=== PATIENT | female | born 1940 | race Caucasian/White ===

== ENCOUNTER 2016-11-12 10:24 | Emergency (ER) | payer OTHER ==
[~2016-11-12] VITALS: Ht 157.5 cm; Wt 78.9 kg
[~2016-11-12 10:24] MED LIST: ACET1TAB40 PO; ACET500C5 PO; CLIN-73 PO; MUPI22OI2 TOP; [UNRECOGNIZED DRUG - REMARK]
[2016-11-12 10:30] VITALS: Ht 157.5 cm; Wt 78.9 kg
[2016-11-12] MEDS ORDERED: ACETAMINOPHEN 500 MG TAB PO STA (11:25)
[2016-11-12] MEDS ORDERED: SULF1TAB31 PO (11:28)
[2016-11-12] MEDS ORDERED: MUPI22OI2 TOP (11:28)
[2016-11-12] MEDS ORDERED: TRIMETHOPRIM/SULFAMETHOX (DS) TAB PO ONE (11:30)
--- NOTE | 2016-11-12 11:35 | ERD ---
ER Documentation Chief Complaint Date/Time DATE: 11/12/16 TIME: 11:32 Chief Complaint drainage from belly buttom HPI 6-year-old female presents with some foul-smelling discharge from her bellybutton for the last few days. Patient has a history of umbilical hernia surgery approximately 2 years ago. She has no measured fevers, vomiting and is having normal bowel movements. There is no redness noted. ROS All systems reviewed and are negative except as per history of present illness. Medications Home Meds Active Scripts Mupirocin* (Bactroban*) 2% -22 Gram Oint...g., 1 APPLIC TOP BID for 7 Days, EA Prov:ARIANA VELA MD 11/12/16 Sulfamethoxazole/Trimethoprim* (Bactrim Ds* Tablet) 1 Each Tablet, 1 TAB PO BID for 7 Days, #14 TAB Prov:ARIANA VELA MD 11/12/16 Acetaminophen* (Tylophen*) 500 Mg Capsule, 1 CAP PO Q6H Y for PAIN AND OR ELEVATED TEMP, #20 CAP Prov:FITZ HAY NP 08/14/15 Mupirocin* (Bactroban*) 2% -22 Gram Oint...g., 1 APPLIC TOP BID for 7 Days, EA Prov:FITZ HAY NP 08/14/15 Acetaminophen-Codeine* (Acetaminophen-Cod #3*) 300-30 Mg Tab, 1 TAB PO BID Y for PAIN, #30 TAB 0 Refills Prov:SAVANNAH CARPENTER PA-C 02/16/15 Clindamycin Hcl* (Clindamycin Hcl*) 300 Mg Capsule, 300 MG PO TID for 10 Days, CAP Prov:DEE LANGE PA-C 02/11/15 Reported Medications [Pt Does Not Recall M] No Conflict Check 10/03/10 Allergies Allergies: Coded Allergies: Penicillins (Verified Allergy, Unknown, 08/14/15) tetracycline (Verified Allergy, Unknown, 08/14/15) PMhx/Soc History of Surgery: No (TUBES TIED, R HAND SURGERY, HERNIA) Anesthesia Reaction: No Hx Neurological Disorder: No Hx Respiratory Disorders: No Hx Psychiatric Problems: No Hx Alcohol Use: No Hx Substance Use: No Hx Tobacco Use: No Physical Exam Vitals Vital Signs Date Time Temp Pulse Resp B/P Pulse Ox O2 Delivery O2 Flow Rate FiO2 11/12/16 10:30 98.2 74 18 166/77 99 Physical Exam Const: []Alert, [id number]. Head: Atraumatic Eyes: Normal Conjunctiva ENT: Normal External Ears, Nose and Mouth. Neck: Full range of motion..~ No meningismus. Resp: Clear to auscultation bilaterally Cardio: Regular rate and rhythm, no murmurs Abd: Soft, non tender, non distended. Normal bowel sounds. There is a healed abdominal hernia surgery. There is slight amount of clear foul-smelling discharge from near the scar. There is no erythema or fluctuance or expressible discharge. There is no appreciable deep abdominal tenderness. Skin: No petechiae or rashes Back: No midline or flank tenderness Ext: No cyanosis, or edema Neur: Awake and alert Psych: Normal Mood and Affect Results 24 hrs Current Medications Medications (Trade) Dose Ordered Sig/Uli Route PRN Reason Start Time Stop Time Status Last Admin Dose Admin Trimethoprim/ Sulfamethoxazole (Bactrim (Ds)) 1 tab ONCE ONCE PO 11/12/16 11:30 11/12/16 11:31 DC 11/12/16 11:29 Acetaminophen (Tylenol Tab) 500 mg ONCE STAT PO 11/12/16 11:25 11/12/16 11:26 DC 11/12/16 11:29 Procedures/MDM Patient presents with signs of a superficial skin infection near the scar of her umbilicus from previous surgery. There is no evidence of significant cellulitis and signs and symptoms do not suggest deep abdominal infection or abscess to be drained. there is no symptoms to suggest sepsis, obstruction, incarcerated or strangulated recurrent hernia. She will treated with Bactrim and further observation at home. She should recheck in 2 days for recheck otherwise return sooner for fevers, redness, vomiting, difficulty with balance, new worsening symptoms, changes in bowel movements or with primary doctor this week. Departure Diagnosis: Primary Impression: Skin infection Condition: Stable Patient Instructions: Folliculitis Additional Instructions: CHEQUE EN 2 ZAMBRANO PARA CHEQUE OTRO VEZ, MAS PRONTO PARA FIEBRE, MAS MOYER , NUEVA SIMPTOMAS. ARIANA VELA MD Nov 12, 2016 11:35
== END 2016-11-12 11:49 | disposition home or self-care (01) ==
LOC: FTE 10:24
DX: K91.89 Other postprocedural complications and disorders of digestive system (principal); L08.9 Local infection of the skin and subcutaneous tissue, unspecified
CPT/HCPCS: 99284

== ENCOUNTER 2016-12-28 09:32 | Emergency (ER) | payer OTHER ==
[~2016-12-28] VITALS: Ht 152.4 cm; Wt 63.5 kg
[~2016-12-28 09:32] MED LIST changes: +SULF1TAB31 PO
[2016-12-28 09:40] VITALS: Ht 152.4 cm; Wt 63.5 kg
[2016-12-28] MEDS ORDERED: TRIA15CR55 TOP (11:44)
[2016-12-28] MEDS ORDERED: SULF1TAB31 PO (11:44)
--- NOTE | 2016-12-28 12:00 | ERD ---
ER Documentation Chief Complaint Chief Complaint pt bib self with c/o rash to left ankle and foot pain x 3 days HPI This is a 76-year-old female with a history of type 2 diabetes who presents the emergency department, complaining of a burning and itchy rash to the left lower extremity 3 days. Patient denies any injury, trauma, or fall. She states that she noticed a red lesion to the lateral ankle region which she rates at a 5 out of 10 itchiness with no exacerbating or alleviating factors. She has not attempted to treat her symptoms thus far. She denies fever, chills, joint pain , difficulty walking, recent immobilization, recent surgery, cancer, chest pain or shortness of breath. ROS All systems reviewed and are negative except as per history of present illness. Medications Home Meds Active Scripts Sulfamethoxazole/Trimethoprim* (Bactrim Ds* Tablet) 1 Each Tablet, 1 TAB PO BID , #14 TAB Prov:JAISON KOHLER PA-C 12/28/16 Triamcinolone Acetonide (Triamcinolone Acetonide) 0.1% - 15 Gm Cream.gm., 1 APPLIC TOP BID, #1 TUB Prov:JAISON KOHLER PA-C 12/28/16 Mupirocin* (Bactroban*) 2% -22 Gram Oint...g., 1 APPLIC TOP BID for 7 Days, EA Prov:ARIANA VELA MD 11/12/16 Sulfamethoxazole/Trimethoprim* (Bactrim Ds* Tablet) 1 Each Tablet, 1 TAB PO BID for 7 Days, #14 TAB Prov:ARIANA VELA MD 11/12/16 Acetaminophen* (Tylophen*) 500 Mg Capsule, 1 CAP PO Q6H Y for PAIN AND OR ELEVATED TEMP, #20 CAP Prov:FITZ HAY NP 08/14/15 Mupirocin* (Bactroban*) 2% -22 Gram Oint...g., 1 APPLIC TOP BID for 7 Days, EA Prov:FITZ HAY NP 08/14/15 Acetaminophen-Codeine* (Acetaminophen-Cod #3*) 300-30 Mg Tab, 1 TAB PO BID Y for PAIN, #30 TAB 0 Refills Prov:SAVANNAH CARPENTER PA-C 02/16/15 Clindamycin Hcl* (Clindamycin Hcl*) 300 Mg Capsule, 300 MG PO TID for 10 Days, CAP Prov:DEE LANGE PA-C 02/11/15 Reported Medications [Pt Does Not Recall M] No Conflict Check 10/03/10 Allergies Allergies: Coded Allergies: Penicillins (Verified Allergy, Unknown, 08/14/15) tetracycline (Verified Allergy, Unknown, 08/14/15) PMhx/Soc History of Surgery: No (TUBES TIED, R HAND SURGERY, HERNIA) Anesthesia Reaction: No Hx Neurological Disorder: No Hx Respiratory Disorders: No Hx Psychiatric Problems: No Hx Alcohol Use: No Hx Substance Use: No Hx Tobacco Use: No Physical Exam Vitals Vital Signs Date Time Temp Pulse Resp B/P Pulse Ox O2 Delivery O2 Flow Rate FiO2 12/28/16 09:40 98.3 81 18 166/70 99 Physical Exam Const: Well-developed, well-nourished, in no acute distress Head: Atraumatic Eyes: Normal Conjunctiva ENT: Normal External Ears, Nose and Mouth. Neck: Full range of motion..~ No meningismus. Resp: Clear to auscultation bilaterally Cardio: Regular rate and rhythm, no murmurs Abd: Soft, non tender, non distended. Normal bowel sounds Skin: 2 cm area of well-circumscribed erythema with overlying scaly appearance. No swelling. No induration. Mild tenderness to palpation. No swelling of the joint or leg. Back: No midline or flank tenderness Ext: No cyanosis, or edema. Full range of motion at the left ankle joint. Full weightbearing and normal gait. Neur: Awake and alert Psych: Normal Mood and Affect Procedures/MDM This is a 76-year-old female with a history of type 2 diabetes who presents to the emergency department for complaints of an itchy lesion to the left lower extremity. Upon arrival, patient well-appearing, nontoxic and in no acute distress. Vital signs reviewed and within normal limits. Patient denies fever , chills, joint pain, or difficulty walking. Physical exam with evidence of an eczematous type lesion to the left lateral ankle. Based on patient's history and physical examination, presentation consistent with likely eczematous rash. At this time low suspicion for acute abscess, severe cellulitis, septic joint, DVT, PE, severe systemic illness or sepsis. Because the patient presents with a history of type 2 diabetes I will also be recommending a short course of antibiotics as well as topical steroid ointment. Based on patient's history of present illness and physical examination the decision was made to discharge. The patient was re-evaluated after ED treatment and stabilizing measures, and symptoms have improved. There is no evidence of life threatening injuries or illnesses at this time. On re-examination, patient resting in no distress, stable vital signs, reports feeling better and safe for discharge with outpatient follow up with PMD in 1-2 days. Patient given return precautions. Departure Diagnosis: Primary Impression: Rash Condition: Good Patient Instructions: Atopic Dermatitis (Eczema) Additional Instructions: Call your primary care doctor TOMORROW for an appointment during the next 1-2 days.See the doctor sooner or return here if your condition worsens before your appointment time. JAISON KOHLER PA-C Dec 28, 2016 12:00
[2016-12-29] MEDS ORDERED: BEN25 PO (13:09)
== END 2016-12-28 12:23 | disposition home or self-care (01) ==
LOC: FTE 09:32
DX: R21 Rash and other nonspecific skin eruption (principal)
CPT/HCPCS: 99284

== ENCOUNTER 2016-12-29 10:55 | Emergency (ER) | payer OTHER ==
[~2016-12-29] VITALS: Wt 59.0 kg
[~2016-12-29 10:55] MED LIST changes: +TRIA15CR55 TOP
[2016-12-29] MEDS ORDERED: DIPHENHYDRAMINE 25 MG CAP PO ONE (12:30)
[2016-12-29] MEDS ORDERED: DEXAMETHASONE 10 MG/ML 1 ML INJ PO ONE (12:30)
[2016-12-29] MEDS ORDERED: BEN25 PO (13:09)
--- NOTE | 2016-12-29 13:17 | ERD ---
ER Documentation Chief Complaint Chief Complaint POSSIBLE ALLERGIC REACTION TO BACTRIN, HAS RASH HPI This is a 76-year-old female that presents to the ER with an itchy rash that started yesterday after she took Bactrim. Patient was seen here and given hydrocortisone and Bactrim for eczema. Denies any lip swelling, tongue swelling , shortness of breath, chest pain. Rash is very itchy. It is located on her chest and arms. Denies any fevers or chills. She states that the cream she was given really helped her rash is no longer better itchy. ROS 12 point review of systems was done, all negative except per HPI. Medications Home Meds Active Scripts Diphenhydramine Hcl* (Benadryl*) 25 Mg Cap, 25 MG PO Q6, #30 CAP Prov:ADAN REDMAN 12/29/16 Sulfamethoxazole/Trimethoprim* (Bactrim Ds* Tablet) 1 Each Tablet, 1 TAB PO BID , #14 TAB Prov:JAISON KOHLER PA-C 12/28/16 Triamcinolone Acetonide (Triamcinolone Acetonide) 0.1% - 15 Gm Cream.gm., 1 APPLIC TOP BID, #1 TUB Prov:JAISON KOHLER PA-C 12/28/16 Mupirocin* (Bactroban*) 2% -22 Gram Oint...g., 1 APPLIC TOP BID for 7 Days, EA Prov:RAIANA VELA MD 11/12/16 Sulfamethoxazole/Trimethoprim* (Bactrim Ds* Tablet) 1 Each Tablet, 1 TAB PO BID for 7 Days, #14 TAB Prov:ARIANA VELA MD 11/12/16 Acetaminophen* (Tylophen*) 500 Mg Capsule, 1 CAP PO Q6H Y for PAIN AND OR ELEVATED TEMP, #20 CAP Prov:FITZ HAY NP 08/14/15 Mupirocin* (Bactroban*) 2% -22 Gram Oint...g., 1 APPLIC TOP BID for 7 Days, EA Prov:FITZ HAY NP 08/14/15 Acetaminophen-Codeine* (Acetaminophen-Cod #3*) 300-30 Mg Tab, 1 TAB PO BID Y for PAIN, #30 TAB 0 Refills Prov:SAVANNAH CARPENTER PA-C 02/16/15 Clindamycin Hcl* (Clindamycin Hcl*) 300 Mg Capsule, 300 MG PO TID for 10 Days, CAP Prov:DEE LANGE JOE 02/11/15 Reported Medications [Pt Does Not Recall M] No Conflict Check 10/03/10 Allergies Allergies: Coded Allergies: Penicillins (Verified Allergy, Unknown, 08/14/15) tetracycline (Verified Allergy, Unknown, 08/14/15) PMhx/Soc History of Surgery: No (TUBES TIED, R HAND SURGERY, HERNIA) Anesthesia Reaction: No Hx Neurological Disorder: No Hx Respiratory Disorders: No Hx Psychiatric Problems: No Hx Alcohol Use: No Hx Substance Use: No Hx Tobacco Use: No Physical Exam Vitals Vital Signs Date Time Temp Pulse Resp B/P Pulse Ox O2 Delivery O2 Flow Rate FiO2 12/29/16 10:59 98.1 82 18 178/89 99 Physical Exam GENERAL: The patient is well developed and appropriate for usual state of health , in no apparent distress. HEENT: Atraumatic. No lip swelling, tongue swelling, eyes swelling. CHEST: Clear to auscultation bilaterally. There are no rales, wheezes or rhonchi. HEART: Regular rate and rhythm. No murmurs, clicks, rubs or gallops. NEURO: Alert and oriented. SKIN: Papular rash to the chest and arms. Negative Nikolsky sign. Results 24 hrs Current Medications Medications (Trade) Dose Ordered Sig/Uli Route PRN Reason Start Time Stop Time Status Last Admin Dose Admin Diphenhydramine HCl (Benadryl) 25 mg ONCE ONCE PO 12/29/16 12:30 12/29/16 12:31 DC 12/29/16 12:25 Dexamethasone (Decadron) 10 mg ONCE ONCE PO 12/29/16 12:30 12/29/16 12:31 DC 12/29/16 12:25 Procedures/MDM Differential Diagnosis: dermatitis, allergic urticaria, viral exanthem, insect bite, fungal infectio ,viral exanthem, hand foot mouth disease, , impetigo, cellulitis, abscess, julisa neptali syndrome, meningocemia, necrotizing fasciitis, myositis. Clinical suspcicion for necrotizing fasciitis or myositis is low. There are no skip leasions or pain away from the site of the rash. Clinical suspicion for julisa neptali syndrome is low. Patient is given Decadron and Benadryl here in the ER, her rash was improved. Patient will be sent home with Benadryl. I did not give patient additional steroids, she does have diabetes, and I do not want her sugar gets too high. Patient is afebrile, she does not have any lip, tongue, eyes swelling. Patient was told to discontinue Bactrim, as the area does not appear infected, and appears completely better with only steroid cream. Cellulitis or deep space infection. Patient is to follow-up with her primary care doctor within 1-2 days or return to ER sooner if symptoms worsen. My medical decision making shared with the patient she understands and agrees with plan. Departure Diagnosis: Primary Impression: Allergic reaction Condition: Stable Patient Instructions: Allergic Reaction, Drug Referrals: CANDI MATA (PCP) Additional Instructions: Call your primary care doctor TOMORROW for an appointment during the next 1-2 days.See the doctor sooner or return here if your condition worsens before your appointment time. ADAN REDMAN Dec 29, 2016 13:17
== END 2016-12-29 13:31 | disposition home or self-care (01) ==
LOC: FTE 10:55
DX: R21 Rash and other nonspecific skin eruption (principal)
CPT/HCPCS: 99283; J1100

== ENCOUNTER 2017-04-11 15:12 | Emergency (ER) | END 2017-04-11 21:52 | disposition home or self-care (01) ==

== ENCOUNTER 2017-10-04 13:07 | Emergency (ER) | END 2017-10-04 16:38 | disposition home or self-care (01) ==

== ENCOUNTER 2018-08-27 09:09 | Emergency (ER) | payer OTHER ==
[~2018-08-27] VITALS: Ht 160 cm; Wt 60.3 kg
[~2018-08-27 09:09] MED LIST changes: +ALBU8.5H8 INH; +AZIT250T PO; +BEN25 PO; -CLIN-73 PO; +CLIN300C10 PO; +CLOT30CR24 TOP
[2018-08-27 09:14] VITALS: Ht 160 cm; Wt 60.3 kg
--- NOTE | 2018-08-27 11:26 | ERD ---
ER Documentation Chief Complaint Chief Complaint C/O AP, N/V, H/A AND HIGH BP TODAY. HPI This is a 78-year-old woman with multiple complaints including diffuse abdominal cramping, headache, nausea, dizziness, hypertension today. She states she has had these symptoms for the last 2 days, she does have a history of recurrent abdominal pain and she states it feels similar she has had no vomiting or diarrhea, no blood per rectum or melena, no chest pain or slurred speech. Patient denies dysuria. ROS All systems reviewed and are negative except as per history of present illness. Medications Home Meds Active Scripts Mag Hydrox/Al Hydrox/Simeth (Maalox Advanced Suspension) 355 Ml Oral.susp, 2 TSP PO TID PRN for PAIN, #16 OZ Prov:FREYA HDEZ MD 08/27/18 Ondansetron Hcl* (Zofran*) 4 Mg Tablet, 4 MG PO Q8H PRN for NAUSEA AND/OR VOMITING, #30 TAB Prov:FREYA HDEZ MD 08/27/18 Ibuprofen* (Motrin*) 600 Mg Tab, 600 MG PO Q8 PRN for PAIN AND/OR INFLAMMATION, #30 TAB Prov:FREYA HDEZ MD 08/27/18 Reported Medications Atorvastatin* (Atorvastatin*) 40 Mg Tablet, 40 MG PO QHS, #30 TAB 08/27/18 Gabapentin* (Gabapentin*) 100 Mg Capsule, 100 MG PO QHS, #90 CAP 08/27/18 Amlodipine Besylate* (Norvasc*) 5 Mg Tablet, 5 MG PO DAILY, TAB 08/27/18 Sertraline Hcl* (Sertraline Hcl*) 25 Mg Tablet, 25 MG PO DAILY, #30 TAB 08/27/18 Metoprolol Succinate* (Toprol XL*) 50 Mg Tab.er.24h, 50 MG PO DAILY, #30 TAB 08/27/18 Losartan-Hydrochlorothiazide (Losartan-HCTZ) 100-12.5 Mg Tab, 1 TAB PO DAILY, TAB 08/27/18 Metformin Hcl* (Metformin Hcl*) 1,000 Mg Tablet, 1000 MG PO WITH BREAKFAST DINNE, #60 TAB 08/27/18 Glimepiride* (Glimepiride*) 2 Mg Tablet, 2 MG PO WITH BREAKFAST, TAB 08/27/18 Discontinued Reported Medications [Pt Does Not Recall M] No Conflict Check 10/03/10 Discontinued Scripts Acetaminophen* (Tylophen*) 500 Mg Capsule, 1 CAP PO Q6H PRN for PAIN AND OR ELEVATED TEMP, #20 CAP Prov:TREVER SHELTON F 04/11/17 Clotrimazole* (Clotrimazole* AF) 1% - 30 Gm Cream.gm., 1 APPLIC TOP BID for 7 Days, TUB Prov:TREVER SHELTON F 04/11/17 Albuterol Sulfate* (Proair HFA*) 8.5 Gm Hfa.aer.ad, 2 PUFF INH Q4, #1 INHALER Prov:TREVER SHELTON F 04/11/17 Azithromycin* (Zithromax*) 250 Mg Tablet, 250 MG PO .GIULIANA DIRECTED, #6 TAB TAKE 500 MG (2 TABS) THE FIRST DAY THEN 250 MG (1 TAB) DAYS 2-5 Prov:TREVER SHELTON F 04/11/17 Diphenhydramine Hcl* (Benadryl*) 25 Mg Cap, 25 MG PO Q6, #30 CAP Prov:ADAN REDMAN 12/29/16 Sulfamethoxazole/Trimethoprim* (Bactrim Ds* Tablet) 1 Each Tablet, 1 TAB PO BID, #14 TAB Prov:JAISON KOHLER PA-C 12/28/16 Triamcinolone Acetonide (Triamcinolone Acetonide) 0.1% - 15 Gm Cream.gm., 1 APPLIC TOP BID, #1 TUB Prov:JAISON KOHLER PA-C 12/28/16 Mupirocin* (Bactroban*) 2% -22 Gram Oint...g., 1 APPLIC TOP BID for 7 Days, EA Prov:ARIANA VELA MD 11/12/16 Sulfamethoxazole/Trimethoprim* (Bactrim Ds* Tablet) 1 Each Tablet, 1 TAB PO BID for 7 Days, #14 TAB Prov:ARIANA VELA MD 11/12/16 Acetaminophen* (Tylophen*) 500 Mg Capsule, 1 CAP PO Q6H PRN for PAIN AND OR ELEVATED TEMP, #20 CAP Prov:FITZ HAY NP 08/14/15 Mupirocin* (Bactroban*) 2% -22 Gram Oint...g., 1 APPLIC TOP BID for 7 Days, EA Prov:SATNAM,FITZ Ed ANDERSON 08/14/15 Acetaminophen-Codeine* (Acetaminophen-Cod #3*) 300-30 Mg Tab, 1 TAB PO BID PRN for PAIN, #30 TAB 0 Refills Prov:SAVANNAH CARPENTER PA-C 02/16/15 Clindamycin Hcl* (Clindamycin Hcl*) 300 Mg Capsule, 300 MG PO TID for 10 Days, CAP Prov:DEE LANGE PA-C 02/11/15 Allergies Allergies: Coded Allergies: Penicillins (Verified Allergy, Unknown, 08/27/18) meloxicam (Unverified Allergy, Unknown, 08/27/18) tetracycline (Verified Allergy, Unknown, 08/27/18) PMhx/Soc Hypertension, hyperlipidemia, diabetes mellitus, arthritis History of Surgery: No (TUBES TIED, R HAND SURGERY, HERNIA) Anesthesia Reaction: No Hx Neurological Disorder: No Hx Respiratory Disorders: No Hx Cardiac Disorders: Yes (HTN, hyperlipidemia, diabetes) Hx Psychiatric Problems: No Hx Miscellaneous Medical Probl: No Hx Alcohol Use: No Hx Substance Use: No Hx Tobacco Use: No Smoking Status: Never smoker FmHx Family History: No diabetes Physical Exam Vitals Vital Signs Date Temp Pulse Resp B/P (MAP) Pulse Ox O2 O2 Flow FiO2 Time Delivery Rate 08/27/18 98.0 75 20 147/62 100 Room Air 13:12 (90) 08/27/18 98.7 88 18 162/81 97 Room Air 12:19 (108) 08/27/18 97.7 80 18 208/84 99 09:14 (125) Physical Exam GENERAL: Well-developed, well-nourished, well-hydrated, in no apparent distress, looks nontoxic in appearance HEENT: Moist mucous membranes, pink conjunctiva, no cervical spine tenderness or step-off deformities, no goiter, no jaundice or icterus, extraocular movements intact without pain. No submandibular induration, and no pharyngeal erythema NEURO: Alert and oriented 3, cranial nerves II through XII intact bilaterally, pupils equal round reactive to light, no focal deficits or facial asymmetry, sensation intact distally Strength 5/5 in upper and lower extremities bilatera lly CARDIAC: Regular rate and rhythm, no murmurs rubs or gallops LUNGS: Clear bilaterally no wheezing crackles or stridor ABDOMEN: Soft nontender, no guarding, no rigidity, no rebound, no psoas sign no obturator sign. Normoactive bowel sounds SKIN: Warm and dry to touch, no abrasions, contusions, or hematomas, no lacerations, no ecchymosis, no target lesions, and without ulcers EXTREMITIES: No clubbing cyanosis or edema, calves are bilaterally symmetrical, no Homans sign, no popliteal cord sign. Distal pulses equal and bilateral PSYCH: Normal affect without agitation or irritability Result Diagram: 08/27/18 1155 08/27/18 1155 Results 24 hrs Laboratory Tests Test 08/27/18 11:54 08/27/18 11:55 Urine Color STRAW Urine Clarity CLEAR Urine pH 7.0 Urine Specific [place] 1.009 Urine Ketones NEGATIVE mg/dL Urine Nitrite NEGATIVE mg/dL Urine Bilirubin NEGATIVE mg/dL Urine Urobilinogen NEGATIVE mg/dL Urine Leukocyte Esterase NEGATIVE Nikunj/ul Urine Microscopic RBC 2 /HPF Urine Microscopic WBC 0 /HPF Urine Hemoglobin NEGATIVE mg/dL Urine Glucose NEGATIVE mg/dL Urine Total Protein 1+ mg/dl White Blood Count 9.5 10^3/ul Red Blood Count 4.13 10^6/ul Hemoglobin 11.2 g/dl Hematocrit 35.2 % Mean Corpuscular Volume 85.2 fl Mean Corpuscular Hemoglobin 27.1 pg Mean Corpuscular Hemoglobin Concent 31.8 g/dl Red Cell Distribution Width 14.3 % Platelet Count 540 10^3/UL Mean Platelet Volume 9.0 fl Immature Granulocytes % 0.500 % Neutrophils % 80.9 % Lymphocytes % 14.6 % Monocytes % 3.1 % Eosinophils % 0.1 % Basophils % 0.8 % Nucleated Red Blood Cells % 0.0 /100WBC Immature Granulocytes # 0.050 10^3/ul Neutrophils # 7.7 10^3/ul Lymphocytes # 1.4 10^3/ul Monocytes # 0.3 10^3/ul Eosinophils # 0.0 10^3/ul Basophils # 0.1 10^3/ul Nucleated Red Blood Cells # 0.0 10^3/ul Sodium Level 139 mmol/L Potassium Level 4.1 mmol/L Chloride Level 97 mmol/L Carbon Dioxide Level 27 mmol/L Anion Gap 15 Blood Urea Nitrogen 12 mg/dl Creatinine 0.64 mg/dl Est Glomerular Filtrat Rate mL/min mL/min Glucose Level 182 mg/dl Calcium Level 9.9 mg/dl Total Bilirubin 0.3 mg/dl Direct Bilirubin 0.00 mg/dl Indirect Bilirubin 0.3 mg/dl Aspartate Amino Transf (AST/SGOT) 24 IU/L Alanine Aminotransferase (ALT/SGPT) 19 IU/L Alkaline Phosphatase 66 IU/L Total Protein 8.6 g/dl Albumin 4.6 g/dl Globulin 4.00 g/dl Albumin/Globulin Ratio 1.15 Lipase 126 U/L Current Medications Medications Dose Sig/Uli Start Time Status Last (Trade) Ordered Route PRN Stop Time Admin Dose Reason Admin Sodium 1,000 ml @ Q1H STAT 08/27/18 DC 08/27/18 Chloride 1,000 mls/hr IV 11:32 12:08 08/27/18 12:31 Ondansetron 4 mg ONCE STAT 08/27/18 DC 08/27/18 HCl (Zofran IV 11:32 12:07 Inj) 08/27/18 11:33 Ketorolac 15 mg ONCE STAT 08/27/18 DC 08/27/18 Tromethamine IV 11:32 12:07 (Toradol) 08/27/18 11:33 Procedures/MDM IV line was established patient was placed on playground monitor rhythm strip revealed a sinus rhythm at about 80 bpm with upright P and T waves. Patient was afebrile I administered 500 cc normal saline IV, Toradol 15 mg IV, Zofran 4 mg IV. CBC and electrolytes are normal, liver function tests were normal, urinalysis negative for infection. I did tell the patient's return in 8 hours for repeat abdominal examination and reevaluation. Differential diagnoses considered, included but not limited to acute coronary syndrome, pulmonary embolism, aortic dissection, abdominal aortic aneurysm, sepsis, stroke, meningitis, encephalitis, pneumonia, appendicitis, cholecystitis, bowel obstruction, pyelonephritis, nephrolithiasis, cystitis, as well as metabolic, hematologic, and electrolyte abnormalities. As well as abscess, cellulitis, fractures, and dislocations. Patient feels much better at this time, and vital signs are normal, symptoms have improved. I did give strict instructions to return to the ED if symptoms continue or worsen, patient will otherwise follow-up with primary care physician. Patient understood instructions and agreed to plan. Disclaimer: Inadvertent spelling and grammatical errors are likely due to EHR/dictation software use and do not reflect on the overall quality of patient care. Also, please note that the electronic time recorded on this note does not necessarily reflect the actual time of the patient encounter. Departure Diagnosis: Primary Impression: Headache Headache type: unspecified Headache chronicity pattern: acute headache Intractability: not intractable Qualified Codes: R51 - Headache Additional Impression: Abdominal pain Abdominal location: generalized Qualified Codes: R10.84 - Generalized abdominal pain Condition: Good FREYA HDEZ MD Aug 27, 2018 11:26
[2018-08-27] MEDS ORDERED: SOD CHLORIDE 0.9% 1,000 ML IV STA (11:32)
[2018-08-27] MEDS ORDERED: KETOROLAC 15 MG INJ IV STA (11:32)
[2018-08-27] MEDS ORDERED: ONDANSETRON 4 MG INJ IV STA (11:32)
[2018-08-27] MEDS ORDERED: GLIM2TAB PO (11:45)
[2018-08-27] MEDS ORDERED: METF100010 PO (11:46)
[2018-08-27] MEDS ORDERED: LOSA1TAB28 PO (11:46)
[2018-08-27] MEDS ORDERED: METO-319 PO (11:48)
[2018-08-27] MEDS ORDERED: SERT25TA83 PO (11:48)
[2018-08-27] MEDS ORDERED: AMLO5TAB4 PO (11:49)
[2018-08-27] MEDS ORDERED: GABA100C14 PO (11:49)
[2018-08-27] MEDS ORDERED: ATOR40TA68 PO (11:49)
[2018-08-27] MEDS ORDERED: MAG355OR14 PO (12:43)
[2018-08-27] MEDS ORDERED: ONDA4TAB8 PO (12:43)
[2018-08-27] MEDS ORDERED: IBUP-1542 PO (12:43)
[2018-08-27 13:12] VITALS: BP 147/62; PULSE 75; RESP 20
== END 2018-08-27 13:14 | disposition home or self-care (01) ==
LOC: E/R 09:09
DX: R51 Headache (principal); I10 Essential (primary) hypertension; E11.9 Type 2 diabetes mellitus without complications; R11.10 Vomiting, unspecified; Z79.84 Long term (current) use of oral hypoglycemic drugs
CPT/HCPCS: 36415; 80053; 81001; 83690; 85025; 96374; 96375; 99284; J1885; J2405; J7030

== ENCOUNTER 2018-10-16 14:17 | Emergency (ER) | payer OTHER ==
[~2018-10-16] VITALS: Ht 152.4 cm; Wt 59.6 kg
[~2018-10-16 14:17] MED LIST changes: -ACET1TAB40 PO; -ACET500C5 PO; -ALBU8.5H8 INH; +AMLO5TAB4 PO; +ATOR40TA68 PO; -AZIT250T PO; -BEN25 PO; -CLIN300C10 PO; -CLOT30CR24 TOP; +GABA100C14 PO; +GLIM2TAB PO; +IBUP-1542 PO; +LOSA1TAB28 PO; +MAG355OR14 PO; +METF100010 PO; +METH500T PO; +METO-319 PO; -MUPI22OI2 TOP; +ONDA4TAB8 PO; +SERT25TA83 PO; -SULF1TAB31 PO; -TRIA15CR55 TOP; -[UNRECOGNIZED DRUG - REMARK]
[2018-10-16 14:24] VITALS: Ht 152.4 cm; Wt 59.6 kg
--- NOTE | 2018-10-16 14:54 | ERD ---
ER Documentation Chief Complaint Chief Complaint right leg pain x 3 days. fell back in february; painful to walk HPI Patient is a 78 years old female with PMHx of DM, HTN presenting to the ED for right leg pain since Friday. Patient reports difficulty walking and admits to falling down and injuring her right leg in February. Patient reports pain is located on right calf region with right plantar foot. Patient admits to taking OTC Tylenol without resolution. Patient denies any joint pain. patient reports leg pain with movement while sleeping. Patient admits to penicillin allergy. ROS All systems reviewed and are negative except as per history of present illness. Medications Home Meds Active Scripts Methocarbamol* (Robaxin*) 500 Mg Tab, 500 MG PO Q8 for 7 Days, #21 TAB Prov:AMANDA ORTIZ PA-C 10/16/18 Mag Hydrox/Al Hydrox/Simeth (Maalox Advanced Suspension) 355 Ml Oral.susp, 2 TSP PO TID PRN for PAIN, #16 OZ Prov:FREYA HDEZ MD 08/27/18 Ondansetron Hcl* (Zofran*) 4 Mg Tablet, 4 MG PO Q8H PRN for NAUSEA AND/OR VOMITING, #30 TAB Prov:FREYA HDEZ MD 08/27/18 Ibuprofen* (Motrin*) 600 Mg Tab, 600 MG PO Q8 PRN for PAIN AND/OR INFLAMMATION, #30 TAB Prov:FREYA HDEZ MD 08/27/18 Reported Medications Atorvastatin* (Atorvastatin*) 40 Mg Tablet, 40 MG PO QHS, #30 TAB 08/27/18 Gabapentin* (Gabapentin*) 100 Mg Capsule, 100 MG PO QHS, #90 CAP 08/27/18 Amlodipine Besylate* (Norvasc*) 5 Mg Tablet, 5 MG PO DAILY, TAB 08/27/18 Sertraline Hcl* (Sertraline Hcl*) 25 Mg Tablet, 25 MG PO DAILY, #30 TAB 08/27/18 Metoprolol Succinate* (Toprol XL*) 50 Mg Tab.er.24h, 50 MG PO DAILY, #30 TAB 08/27/18 Losartan-Hydrochlorothiazide (Losartan-HCTZ) 100-12.5 Mg Tab, 1 TAB PO DAILY, TAB 08/27/18 Metformin Hcl* (Metformin Hcl*) 1,000 Mg Tablet, 1000 MG PO WITH BREAKFAST DINNE, #60 TAB 08/27/18 Glimepiride* (Glimepiride*) 2 Mg Tablet, 2 MG PO WITH BREAKFAST, TAB 08/27/18 Allergies Allergies: Coded Allergies: Penicillins (Verified Allergy, Unknown, 08/27/18) meloxicam (Unverified Allergy, Unknown, 08/27/18) tetracycline (Verified Allergy, Unknown, 08/27/18) PMhx/Soc History of Surgery: No (TUBES TIED, R HAND SURGERY, HERNIA) Anesthesia Reaction: No Hx Neurological Disorder: No Hx Respiratory Disorders: No Hx Cardiac Disorders: Yes (HTN, hyperlipidemia, diabetes) Hx Psychiatric Problems: No Hx Miscellaneous Medical Probl: No Hx Alcohol Use: No Hx Substance Use: No Hx Tobacco Use: No Smoking Status: Unknown if ever smoked FmHx Family History: No diabetes, No coronary disease, No other Physical Exam Vitals Vital Signs Date Temp Pulse Resp B/P (MAP) Pulse Ox O2 O2 Flow FiO2 Time Delivery Rate 10/16/18 66 18 220/86 100 Room Air 16:59 (130) 10/16/18 63 18 209/79 99 Room Air 16:57 (122) 10/16/18 98.5 69 18 182/80 99 14:24 (114) Physical Exam Const: No acute distress Head: Atraumatic Resp: Clear to auscultation bilaterally Cardio: Regular rate and rhythm, no murmurs Back: No midline or flank tenderness Ext: No cyanosis, or edema Neur: Awake and alert Psych: Normal Mood and Affect Right lower extremity exam: Positive Shelby sign. Right calf tenderness. Right Foot exam: No tenderness, swelling, gross trauma. Results 24 hrs Current Medications Medications Dose Sig/Uli Start Time Status Last (Trade) Ordered Route PRN Stop Time Admin Dose Reason Admin 500 mg ONCE ONCE 10/16/18 DC 10/16/18 Methocarbamol PO 17:00 10/16/18 16:50 (Robaxin) 17:01 Sodium 1,000 ml @ Q1H ONCE 10/16/18 Chloride 1,000 mls/hr IV 17:00 10/16/18 17:59 Procedures/MDM Patient was seen and evaluated for right calf pain. Right lower extremity ultrasound revealed No sonographic evidence for deep venous thrombosis. Bolus IV fluids initiated patient to lower acute hypertension without evidence of endorgan damage. Repeat blood pressure post bolus administration revealed significant decrease. Patient presented with asymptomatic hypertension most likely due to stress. Patient is most likely experiencing inflammation of the gastrocnemius muscle without any obvious signs of fracture or tear. Patient is stable and ready for discharge. F/U with PCP. Rest and heat therapy. Departure Diagnosis: Primary Impression: Pain of right leg Condition: Stable Patient Instructions: Possible Causes of Low Back or Leg Pain Referrals: [facility] Additional Instructions: Paciente aconseja volver a Departamento de urgencias inmediatamente para sntomas nuevos o que empeoran . Paciente aconseja posteriores con el PCP en 2-3 [place] . Paciente verbaliza la comprehensin y est de acuerdo con el tratamiento y el curso de accin. Si el paciente no tiene ninguna de atencin primaria pueden seguir con [facility] [address] [place] [address] o [facility] + [address] [address] AMANDA ORTIZ PA-C Oct 16, 2018 14:54
[2018-10-16] MEDS ORDERED: SOD CHLORIDE 0.9% 1,000 ML IV ONE (17:00)
[2018-10-16] MEDS ORDERED: METHOCARBAMOL 500 MG TAB PO ONE (17:00)
[2018-10-16 18:57] VITALS: BP 184/78; PULSE 70; RESP 20
== END 2018-10-16 18:58 | disposition home or self-care (01) ==
LOC: FTE 14:17
DX: M79.604 Pain in right leg (principal); I10 Essential (primary) hypertension; E11.9 Type 2 diabetes mellitus without complications; Z79.84 Long term (current) use of oral hypoglycemic drugs
CPT/HCPCS: 93971; 96360; 99285; J7030